=== PATIENT | male | born 2000 | race Two or more races ===

== ENCOUNTER 2025-03-01 08:31 | Emergency (ER) | payer OTHER ==
[~2025-03-01] VITALS: Ht 165.1 cm; Wt 97.5 kg
[2025-03-01] MEDS ORDERED: DEXAMETHASONE SODIUM PHOSPHATE 4 MG/ML VIAL IM ONE (09:15)
[2025-03-01] MEDS ORDERED: KETOROLAC TROMETHAMINE 60 MG VIAL IM ONE (09:15)
[2025-03-01] MEDS ORDERED: IBUPROFEN800 MG PO (10:34)
== END 2025-03-01 10:44 | disposition home or self-care (01) ==
LOC: ER 08:31
DX: M65.28 Calcific tendinitis, other site (principal)

== ENCOUNTER → 2025-05-02 | Emergency (ER) | payer OTHER ==
[~2025-05-02] VITALS: Ht 165.1 cm; Wt 104.3 kg
[~2025-05-02] MED LIST: DEXAMETHASONE SODIUM PHOSP/PF 10 MG/ML VIAL IJ ONE; IBUPROFEN800 MG PO; KETO10TA2 PO; KETOROLAC TROMETHAMINE 30 MG VIAL IM ONE; ORPHENADRINE CITRATE 30 MG/ML AMPUL IM ONE; TIZANIDINE HCL4 M1 PO
== END | disposition home or self-care (01) ==
LOC: ER 15:58
DX: T14.90XA Injury, unspecified, initial encounter (principal); V43.52XA Car driver injured in collision with other type car in traffic accident, initial encounter; Y93.89 Activity, other specified; Y92.413 State road as the place of occurrence of the external cause